=== PATIENT | female | born 1965 ===

== ENCOUNTER 2016-08-20 09:53 | Emergency (ER) | payer OTHER ==
[2016-08-20 09:59] VITALS: BMI 27.4
[2016-08-20 10:01] VITALS: BP 111/52; PULSE 84; TEMP 98; O2SAT 96
[2016-08-20] MEDS ORDERED: Dexamethasone 10 MG in Sodium Chloride 0.9% 50 ML IV ONE (10:30)
[2016-08-20] MEDS ORDERED: Sodium Chloride 0.9% 1,000 ML IV SCH (10:30)
[2016-08-20] MEDS ORDERED: Clindamycin 600 MG in Sodium Chloride 0.9% 100 ML IVPB ONE (10:30)
--- NOTE | 2016-08-20 11:14 | ED PDOC ---
HPI: General Adult Time Seen by Provider: 08/20/16 10:03 Chief Complaint (Nursing): ENT Problem Chief Complaint (Provider): ENT Problem History Per: Patient History/Exam Limitations: no limitations Onset/Duration Of Symptoms: Days (x5) Have you had recent travel within the past 21 days to any of the following countries: [place], [place], [place] or [place]?: No Current Symptoms Are (Timing): Still Present Additional Complaint(s): 51 year old female presents to ED with complaints of cough x5 days and has no past medical history. (+) sore throat x4 days and fever. (-) chest pain, SOB, abdominal pain, nausea, vomiting, or diarrhea. Patient notes worsening difficulty eating/drinking and swallowing over the course of the 5 days. Patient notes that pain has started to radiate up the right aspect of her neck. PCP: None Past Medical History Reviewed: Historical Data, Nursing Documentation, Vital Signs Vital Signs: Last Vital Signs Temp 98 F 08/20/16 09:58 Pulse 84 08/20/16 09:58 Resp BP 111/52 L 08/20/16 09:58 Pulse Ox 96 08/20/16 11:22 - Medical History PMH: No Chronic Diseases - Surgical History Surgical History: No Surg Hx - Family History Family History: States: No Known Family Hx - Home Medications Home Medications: Ambulatory Orders Medication Instructions Recorded Acetaminophen with Codeine 1 tab PO Q6 #10 tab 09/08/14 [Tylenol with Codeine No. 3 300 mg-30 mg] Famotidine [Pepcid] 20 mg PO BID #20 tab 09/08/14 - Allergies Allergies/Adverse Reactions: Allergies Allergy/AdvReac Type Severity Reaction Status Date / Time No Known Allergies Allergy Verified 09/07/14 22:39 Review of Systems ROS Statement: Except As Marked, All Systems Reviewed And Found Negative Constitutional: Positive for: Fever ENT: Positive for: Throat Pain, Other (difficulty eating/drinking and swallowing ) Cardiovascular: Negative for: Chest Pain Respiratory: Positive for: Cough. Negative for: Shortness of Breath Gastrointestinal: Negative for: Nausea, Vomiting, Abdominal Pain, Diarrhea Physical Exam - Reviewed Nursing Documentation Reviewed: Yes Vital Signs Reviewed: Yes - Physical Exam Appears: Positive for: Non-toxic, No Acute Distress Head Exam: Positive for: ATRAUMATIC Skin: Positive for: Normal Color, Warm, Dry Eye Exam: Positive for: Normal appearance ENT: Positive for: Pharyngeal Erythema (on right side of pharynx), Other ( Peritonsillar enlargement on right side. No uvular deviation.). Negative for: Normal ENT Inspection, Tonsillar Exudate Neck: Positive for: Normal, Painless ROM Cardiovascular/Chest: Positive for: Regular Rate, Rhythm. Negative for: Murmur Respiratory: Positive for: Normal Breath Sounds. Negative for: Respiratory Distress Gastrointestinal/Abdominal: Positive for: Normal Exam, Soft. Negative for: Tenderness Back: Positive for: Normal Inspection Extremity: Positive for: Normal ROM. Negative for: Deformity Neurologic/Psych: Positive for: Alert, Oriented. Negative for: Motor/Sensory Deficits - Laboratory Results Result Diagrams: 08/20/16 11:23 08/20/16 11:23 - ECG O2 Sat by Pulse Oximetry: 96 (RA) Pulse Ox Interpretation: Normal - Progress ED Course And Treament: See hand written note [employer]ch down Medical Decision Making Medical Decision Makin Initial impression: throat pain Initial plan: * VBG shock panel * CT NECK SOFT TISSUE W/ CONTRAST * EKG * Labs * Magnesium * Phosphorus * Trop I * PTT/PT * CXR * Clindamycin IVPB * Decadron Inj IV * Morphine 4mg IV * NS IV * BCx * Re-eval 1100 Dr. De Jesus notified about peritonsillar abscess. Scribe Attestation: Documented by Sharonda Lopez acting as a scribe for Raymond Ayala MD. Scribe Attestation: All medical record entries made by the Scribe were at my direction and personally dictated by me. I have reviewed the chart and agree that the record accurately reflects my personal performance of the history, physical exam, medical decision making, and the department course for this patient. I have also personally directed, reviewed, and agree with the discharge instructions and disposition. Disposition - Clinical Impression Clinical Impression: Peritonsillar abscess - Disposition Disposition: Routine/Home Disposition Time: 15:07 Condition: STABLE
[2016-08-20 11:16] LABS: VENOUS BLOOD GAS BASE EXCESS 0.7 mmol/L (0.0-2.0); VENOUS BLOOD GAS PCO2 43 mmHg (40-60); VENOUS BLOOD GAS PO2 37 mm/Hg (30-55); VENOUS BLOOD PH 7.39 (7.32-7.43)
[2016-08-20 11:41] LABS: BASO % 0.5 % (0.0-2.0); EOS # 0.1 K/uL (0.0-0.7); EOS % 0.6 % (0.0-4.0); HEMOGLOBIN 14.2 g/dL (12.0-16.0); LYMPH # 2.4 K/uL (1.0-4.3); LYMPH % 25.7 % (20.0-40.0); MEAN CELL VOLUME 95.2 fl (81.0-99.0); MEAN CORPUSCULAR HEMOGLOBIN 32.5 pg (27.0-31.0); MEAN CORPUSCULAR HGB CONC 34.2 g/dL (33.0-37.0); MEAN PLATELET VOLUME 8.6 fl (7.2-11.7); MONO # 0.9 K/uL (0.0-0.8); MONO % 9.3 % (0.0-10.0); NEUT % 63.9 % (50.0-75.0); NRBC % 0.1 % (0.0-0.0); RBC 4.38 Mil/uL (3.80-5.20); RED CELL DISTRIBUTION WIDTH 13.5 % (11.5-14.5); WHITE BLOOD COUNT 9.4 K/uL (4.8-10.8)
[2016-08-20 11:55] LABS: ALB/GLOB RATIO 1.3 (1.0-2.1); ALBUMIN 3.9 g/dL (3.5-5.0); ALT/SGPT 39 U/L (9-52); AST/SGOT 19 U/L (14-36); BLOOD UREA NITROGEN 11 mg/dl (7-17); CALCIUM 8.9 mg/dL (8.4-10.2); GFR AFRICAN-AMERICAN > 60; GFR NON-AFRICAN AMERICAN > 60; MAGNESIUM 1.8 MG/DL (1.6-2.3)
[2016-08-20 12:12] LABS: PARTIAL THROMBOPLASTIN TIME 28.3 Seconds (25.6-37.1)
[2016-08-20] MEDS ORDERED: Iohexol 300 100 ML IJ ONE (12:40)
[2016-08-20] MEDS ORDERED: Sodium Chloride 0.9% 50 ML IV ONE (12:40)
--- NOTE | 2016-08-20 13:39 | CT ---
PROCEDURE: CT NECK WITH CONTRAST HISTORY: eval peritonsilar abscess COMPARISON: None TECHNIQUE: CT of the neck with intravenous contrast. Coronal and sagittal reformats generated. Intravenous contrast dose: 100 cc of Omnipaque 350 Radiation dose: DLP 396 mGy-cm This CT exam was performed using one or more of the following dose reduction techniques: Automated exposure control, adjustment of the mA and/or kV according to patient size, and/or use of iterative reconstruction technique. FINDINGS: NASOPHARYNX: Unremarkable. SUPRAHYOID NECK: 2.0 x 1.5 centimeter right para tonsillar abscess with rim enhancement and mass effect upon the airway. The medial margin of the abscess is roughly 7 millimeters from the airway in the transverse dimension. INFRAHYOID NECK: Unremarkable larynx, hypopharynx, and supraglottic space. Vocal cords intact. MASS: None. GLANDS: Parotid and submandibular glands unremarkable. Normal size thyroid gland, without nodule. LYMPH NODES: Normal. No lymphadenopathy. CERVICAL SPINE: No fracture or focal lesion. VASCULAR STRUCTURES: Unremarkable. OTHER FINDINGS: 13 millimeter nonspecific nodule in the lower pole of the left thyroid lobe with a calcified rim.. bilateral temporal arachnoid cysts. IMPRESSION: 2.0 x 1.5 centimeter right para tonsillar abscess with rim enhancement and mass effect upon the airway. The medial margin of the abscess is roughly 7 millimeters from the airway in the transverse dimension.
[2016-08-20] MEDS ORDERED: Lidocaine 2% w Epi 1:100,000 Inj IJ ONE (13:49)
--- NOTE | 2016-08-20 20:14 | RAD ---
HISTORY: Sepsis Patient COMPARISON: No prior. FINDINGS: LUNGS: No active pulmonary disease. PLEURA: No significant pleural effusion identified, no pneumothorax apparent. CARDIOVASCULAR: Normal. OSSEOUS STRUCTURES: No significant abnormalities. VISUALIZED UPPER ABDOMEN: Normal. OTHER FINDINGS: None. IMPRESSION: No active disease.
--- NOTE | 2016-08-22 06:57 | CARD ---
APPROVED REPORT EKG Measurement Heart [id number] [id number] <Conclusion> Normal sinus rhythm Cannot rule out Anterior infarct, age undetermined Abnormal ECG
== END 2016-08-20 16:40 | disposition home or self-care (01) ==
LOC: H.ER 09:53
DX: J36 Peritonsillar abscess (principal)

== ENCOUNTER 2016-08-25 11:44 | Emergency (ER) | payer OTHER ==
[2016-08-25 11:44] VITALS: BMI 27.4
[2016-08-25 11:56] VITALS: PULSE 70; RESP 20; O2SAT 98
--- NOTE | 2016-08-25 12:24 | ED PDOC ---
HPI: CCC, URI, Sore Throat Time Seen by Provider: 08/25/16 12:11 Chief Complaint (Nursing): ENT Problem Chief Complaint (Provider): ENT Problem History Per: Patient History/Exam Limitations: no limitations Onset/Duration Of Symptoms: Days (x5) Additional Complaint(s): Sparkle Roach, 51 year old female presents to the ED on 08/25/16 for a "referral to see Dr. Motta", ENT specialist. The patient states she visited the emergency room 5 days prior to arrival today and was diagnosed with CARPET TILE LAYER. Pt was seen by Dr. Motta in the ER who performed and I&D. Pt states she was told to follow-up on monday (3 days ago). She needed a referral from the ER which prompted her to visit the emergency room today. 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 Pt reports improvement of symptoms. Pt states she was given 3 Rx for home - Antibiotic, steroid and pain medication. Pt reports improvement of symptoms. Denies fever/chills. Past Medical History Reviewed: Historical Data, Nursing Documentation, Vital Signs Vital Signs: Last Vital Signs Temp 97 F L 08/25/16 12:31 Pulse 70 08/25/16 11:51 Resp 20 08/25/16 11:51 BP 126/78 08/25/16 12:31 Pulse Ox 98 08/25/16 12:32 - Medical History PMH: No Chronic Diseases - Family History Family History: States: Unknown Family Hx - Living Arrangements Living Arrangements: With Family - Social History Current smoker - smoking cessation education provided: No Alcohol: None Drugs: Denies - Home Medications Home Medications: Ambulatory Orders Medication Instructions Recorded Acetaminophen with Codeine 1 tab PO Q6 #10 tab 09/08/14 [Tylenol with Codeine No. 3 300 mg-30 mg] Famotidine [Pepcid] 20 mg PO BID #20 tab 09/08/14 - Allergies Allergies/Adverse Reactions: Allergies Allergy/AdvReac Type Severity Reaction Status Date / Time No Known Allergies Allergy Verified 09/07/14 22:39 Review of Systems ROS Statement: Except As Marked, All Systems Reviewed And Found Negative ENT: Positive for: Throat Pain Physical Exam - Reviewed Nursing Documentation Reviewed: Yes Vital Signs Reviewed: Yes - Physical Exam Appears: Positive for: Non-toxic, No Acute Distress Head Exam: Positive for: ATRAUMATIC, NORMOCEPHALIC Skin: Positive for: Normal Color Eye Exam: Positive for: Normal appearance ENT: Positive for: Tonsillar Swelling (bilateral edema and erythema of both tonsils), Other (uvula midline; Tonsils grade 2-3). 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 Provider Scribe Attestation: All medical record entries made by the Scribe were at my direction and personally dictated by me. I have reviewed the chart and agree that the record accurately reflects my personal performance of the history, physical exam, medical decision making, and the department course for this patient. I have also personally directed, reviewed, and agree with the discharge instructions and disposition. Disposition - Clinical Impression Clinical Impression: Peritonsillar abscess - Disposition Referrals: Lio Motta MD [Staff Provider] - Disposition Time: 12:30 Condition: STABLE Instructions: Peritonsillar Abscess (ED) Print Language: LAO
[2016-08-25 12:31] VITALS: BP 126/78; TEMP 97
== END 2016-08-25 12:59 | disposition home or self-care (01) ==
LOC: H.ER 11:44
DX: J36 Peritonsillar abscess (principal)

== ENCOUNTER 2016-11-21 22:08 | Emergency (ER) | payer OTHER, SELFPAY ==
[2016-11-21 22:08] VITALS: BMI 27.4
[2016-11-21 22:30] VITALS: BP 118/73; PULSE 68; RESP 18; TEMP 97.8; O2SAT 99
[2016-11-21] MEDS ORDERED: Sodium Chloride 0.9% 1,000 ML IV STA (23:07)
--- NOTE | 2016-11-21 23:32 | ED PDOC ---
HPI: Abdomen Time Seen by Provider: 11/21/16 22:37 Chief Complaint (Nursing): Abdominal Pain Chief Complaint (Provider): Abdominal Pain History Per: Patient History/Exam Limitations: no limitations Onset/Duration Of Symptoms: Hrs (x3), Sudden Onset Current Symptoms Are (Timing): Still Present Context: Food Pain Scale Rating Of: 8 Location Of Pain/Discomfort: RUQ Quality Of Discomfort: "Pain" Associated Symptoms: Nausea, Vomiting Additional Complaint(s): 51 year old female presents to ED with complaints of RUQ pain x3 hours and has no past medical history. (+) nausea, vomiting x3 episodes (non-bloody, non- bilious), and pain radiation to back. Notes pain started after eating chorizo and rates pain as an 8/10 in severity. PCP: LILIANE Past Medical History Reviewed: Historical Data, Nursing Documentation, Vital Signs Vital Signs: Last Vital Signs Temp 97.8 F 11/21/16 22:27 Pulse 68 11/21/16 22:27 Resp 18 11/21/16 22:27 BP 118/73 11/21/16 22:27 Pulse Ox 99 11/21/16 23:42 - Medical History PMH: No Chronic Diseases - Surgical History Other surgeries: Partial hysterectomy - Family History Family History: States: No Known Family Hx - Living Arrangements Living Arrangements: With Family - Social History Current smoker - smoking cessation education provided: No Ex-Smoker (has not smoked in the last 12 months): No Alcohol: None Drugs: Denies - Home Medications Home Medications: Ambulatory Orders Medication Instructions Recorded Acetaminophen with Codeine 1 tab PO Q6 #10 tab 09/08/14 [Tylenol with Codeine No. 3 300 mg-30 mg] Famotidine [Pepcid] 20 mg PO BID #20 tab 09/08/14 Ondansetron ODT [Zofran ODT] 4 mg PO Q6 PRN #16 odt 11/22/16 traMADol [Ultram] 50 mg PO Q6 #12 tab 11/22/16 - Allergies Allergies/Adverse Reactions: Allergies Allergy/AdvReac Type Severity Reaction Status Date / Time No Known Allergies Allergy Verified 09/07/14 22:39 Review of Systems ROS Statement: Except As Marked, All Systems Reviewed And Found Negative Gastrointestinal: Positive for: Nausea, Vomiting, Abdominal Pain (RUQ pain) Physical Exam - Reviewed Nursing Documentation Reviewed: Yes Vital Signs Reviewed: Yes - Physical Exam Appears: Positive for: Uncomfortable Skin: Positive for: Normal Color, Warm, Dry Eye Exam: Positive for: Normal appearance ENT: Positive for: Normal ENT Inspection Neck: Positive for: Normal, Painless ROM, Supple Cardiovascular/Chest: Positive for: Regular Rate, Rhythm. Negative for: Murmur Respiratory: Positive for: Normal Breath Sounds. Negative for: Respiratory Distress Gastrointestinal/Abdominal: Positive for: Soft, Tenderness (Right upper quadrant tenderness), Other ((+) Lee's sign) Back: Positive for: Normal Inspection Extremity: Positive for: Normal ROM. Negative for: Deformity Neurologic/Psych: Positive for: Alert, Oriented. Negative for: Motor/Sensory Deficits - Laboratory Results Result Diagrams: 11/21/16 22:54 11/21/16 22:54 - ECG O2 Sat by Pulse Oximetry: 99 (RA) Pulse Ox Interpretation: Normal Medical Decision Making Medical Decision Makin Initial impression: Right upper quadrant pain Initial plan: * EKG * Labs * Lipase * UPreg * UDip * NS IV * Toradol 10mg IV * Zofran Inj 4mg IV * US ABD LIMITED * Re-evaluation 2340 US FINDINGS Liver: Liver is mildly enlarged. The hepatic texture is mildly increased. There is hepatopedal flow in the main portal vein. Gallbladder: Gallbladder is partially distended. There is mild gallbladder wall prominence, 3.7 mm in width. There are multiple shadowing gallstones. There is stones in the gallbladder neck. Common bile duct: Common bile duct measures 4.4 mm in diameter. Pancreas: Pancreas is partially obscured by bowel gas. Right kidney: Right kidney is unremarkable. Aorta: Visualized portions of the aorta and inferior vena cava are unremarkable. IMPRESSION: Gallstones with mild gallbladder wall thickening, no ductal dilatation; fatty liver 0117 Upon re-evaluation, patient reports an improvement in pain. Reviewed dietary changes that the patient should make. Labs reviewed: no clinically significant abnormalities. Patient is stable for discharge home. Diagnosis: cholelithiasis Condition: improved Scribe Attestation: Documented by Sharonda Lopez acting as a scribe for Mike Ambrocio MD. Scribe Attestation: All medical record entries made by the Scribe were at my direction and personally dictated by me. I have reviewed the chart and agree that the record accurately reflects my personal performance of the history, physical exam, medical decision making, and the department course for this patient. I have also personally directed, reviewed, and agree with the discharge instructions and disposition. Disposition - Clinical Impression Clinical Impression: Cholelithiasis - Disposition Referrals: [facility] [Outside] Disposition Time: 01:17 Condition: IMPROVED Prescriptions: Ondansetron ODT [Zofran ODT] 4 mg PO Q6 PRN #16 odt PRN Reason: Nausea/Vomiting traMADol [Ultram] 50 mg PO Q6 #12 tab Forms: [employer] (German) Print Language: TRINIDADIAN
--- NOTE | 2016-11-21 23:40 | US ---
EXAM: US Abdomen Limited, Right Upper Quadrant EXAM DATE/TIME: 11/21/2016 10:49 PM CLINICAL HISTORY: 51 years old, female; Pain; Abdominal pain; Epigastric; Additional info: Ruq TECHNIQUE: Real-time ultrasound of the right upper quadrant with image documentation. COMPARISON: There are no prior studies for comparison. FINDINGS: Liver: Liver is mildly enlarged. The hepatic texture is mildly increased. There is hepatopedal flow in the main portal vein. Gallbladder: Gallbladder is partially distended. There is mild gallbladder wall prominence, 3.7 mm in width. There are multiple shadowing gallstones. There is stones in the gallbladder neck. Common bile duct: Common bile duct measures 4.4 mm in diameter. Pancreas: Pancreas is partially obscured by bowel gas. Right kidney: Right kidney is unremarkable. Aorta: Visualized portions of the aorta and inferior vena cava are unremarkable. IMPRESSION: Gallstones with mild gallbladder wall thickening, no ductal dilatation; fatty liver
[2016-11-21 23:43] LABS: BASO % 0.4 % (0.0-2.0); EOS % 0.4 % (0.0-4.0); HEMATOCRIT 42.1 % (34.0-47.0); LYMPH % 16.1 % (20.0-40.0); MEAN CELL VOLUME 94.6 fl (81.0-99.0); MEAN CORPUSCULAR HEMOGLOBIN 31.7 pg (27.0-31.0); MEAN CORPUSCULAR HGB CONC 33.5 g/dL (33.0-37.0); MEAN PLATELET VOLUME 8.6 fl (7.2-11.7); MONO # 0.8 K/uL (0.0-0.8); MONO % 6.1 % (0.0-10.0); NEUT # 9.5 K/uL (1.8-7.0); RED CELL DISTRIBUTION WIDTH 13.5 % (11.5-14.5); WHITE BLOOD COUNT 12.3 K/uL (4.8-10.8)
[2016-11-21] MEDS ORDERED: DiphenhydrAMINE 12.5 mg/5 ml LIQ UD (5 ml) ONE (23:44)
[2016-11-21 23:52] LABS: ALB/GLOB RATIO 1.5 (1.0-2.1); ALKALINE PHOSPHATASE 76 U/L (38-126); ALT/SGPT 38 U/L (9-52); AST/SGOT 26 U/L (14-36); BILIRUBIN,TOTAL 0.6 mg/dl (0.2-1.3); BLOOD UREA NITROGEN 14 mg/dl (7-17); CALCIUM 9.3 mg/dL (8.4-10.2); CARBON DIOXIDE 24 mmol/L (22-30); CHLORIDE 100 mmol/L (98-107); GFR AFRICAN-AMERICAN > 60; GLUCOSE,RANDOM 112 mg/dL (65-105); LIPASE 105 U/L (23-300); POTASSIUM 3.7 MMOL/L (3.6-5.0); SODIUM 136 mmol/l (132-148); TOTAL PROTEIN 6.9 G/DL (6.3-8.2)
--- NOTE | 2016-11-23 01:16 | CARD ---
APPROVED REPORT EKG Measurement Heart [id number] [place] [id number] [id number] <Conclusion> Normal sinus rhythm Low voltage QRS Borderline ECG
== END 2016-11-22 01:25 | disposition home or self-care (01) ==
LOC: H.ER 22:08
DX: K80.20 Calculus of gallbladder without cholecystitis without obstruction (principal)
CPT/HCPCS: 76705; 80053; 83690; 85025; 93005; 99282; J1885; J2405; J7040